=== PATIENT | male | born 1975 | race Caucasian/White ===

== ENCOUNTER 2016-08-19 16:21 | Emergency (ER) | payer BC ==
--- NOTE | 2016-08-19 16:51 | ED Physician Documentation ---
Upper Respiratory Symptoms - HISTORIAN Historian: patient - HPI Stated Complaint: Cough/Congestion Chief Complaint: Cough/ Upper Respiratory Onset: days ago (3-4 days) Associated Symptoms: fever, chills, runny nose, sore throat, productive cough Further Comments: yes (41 year old male patient presents with complaints of body aches, cough, congestion, fever and chills and chest discomfort due to coughing. Patient states his symptoms started 3-4 days ago.) - ROS CONST/EYES: denies: weakness, eye redness, eye itching CVS/RESP: none LYMPH: denies: leg swelling, rash - PAST HX Lung Disease: none PE Risk Factors: none Surgeries/Procedures: other (tonsilectomy) Allergies/Adverse Reactions: Allergies Allergy/AdvReac Type Severity Reaction Status Date / Time cephalexin Allergy Intermediate Hives Unverified 09/11/12 11:30 acetaminophen [From Percocet] Allergy Verified 08/19/16 16:51 cephalexin monohydrate Allergy Verified 05/24/14 11:24 [From Keflex] oxycodone HCl [From Percocet] Allergy Verified 08/19/16 16:51 Home Medications: Ambulatory Orders Medication Instructions Recorded Venlafaxine HCl [Effexor Xr] 75 mg PO DAILY 08/19/16 - SOCIAL HX Smoking History: cigarettes - FAMILY HX Family History: denies: none - VITAL SIGNS Vital Signs: Vital Signs Temp Pulse Resp BP Pulse Ox 98.5 F 88 18 150/99 97 08/19/16 16:25 08/19/16 16:55 08/19/16 16:55 08/19/16 16:55 08/19/16 16:55 - REVIEWED ASSESSMENTS Nursing Assessment Reviewed: Yes Vitals Reviewed: Yes Progress - Progress Progress: Patient requested antibiotic for cough, explained antibiotic would not help Influenza. Reviewed discharge instructions, questions answered. Patient requested inhaler for "chest" explained he was not wheezing, inhaler would not benefit him at this time. ED Results Lab/Radiology - Orders Orders: ED Orders Category Date Time Status INFLUENZA A&B Stat Lab 08/19/16 16:25 Ordered Upper Respiratory Symptoms - EXAM General Appearance: mild distress EENT: eyes nml inspection, nml ENT inspection, lids & conjunct. nml, PERRL, ear nml, nose nml, pharynx nml, airway nml Respiratory: no resp. 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 Your bodys immune system will be able to fight the virus and this can be helped in a number of ways. Rest Have plenty of sleep and rest. Stay away from others while you have a cold or flu. Take simple painkillers Such as Tylenol or ibuprofen, to help relieve headaches, muscles aches and pains and fever. Keep hydrated (drink plenty of fluids) This will help keep your throat moist and replace fluid lost due to a fever and sweating. Plenty of water is best. Avoid caffeine and alcohol as they will make you more dehydrated. Eat soft food If you have a sore throat soft foods are easier to swallow. Foods such as chicken soup may help a sore throat and reduce mucous (sticky fluid). Take vitamins Vitamin C and Echinacea have proven benefits in helping to beat a cold. Talk to your doctor or health ocular care technician before giving your child vitamins. Use nasal drops or spray This may help to clear a blocked nose in the short term (two to three days). Saline mist, Nairs, or Little Noses are available over the counter Use warm gargles and cough lozenges These can help soothe a sore throat. Over the counter cholorseptine spray works well for sore throats. Do not give aspirin to children What to expect Your cold is likely to last a few days but may last up to ten days. A cough may linger for three weeks. The flu can last ten to 14 days. Home Medications: Ambulatory Orders Venlafaxine HCl [Effexor Xr] 75 mg PO DAILY 08/19/16 Condition: Stable Disposition: HOME, SELF-CARE Decision to Admit: NO Decision Time: 16:50
[2016-08-19 16:57] VITALS: BP 150/99
== END 2016-08-19 16:55 | disposition home or self-care (01) ==
LOC: ED 16:21
DX: J11.1 Influenza due to unidentified influenza virus with other respiratory manifestations (principal)
CPT/HCPCS: 87400; 99282; 99283

== ENCOUNTER 2016-08-25 17:13 | Emergency (ER) | payer BC ==
--- NOTE | 2016-08-25 17:31 | ED Physician Documentation ---
General Adult - HISTORIAN Historian: patient - HPI Stated Complaint: cough Chief Complaint: General Adult Onset: days ago Timing: still present Severity: moderate Further Comments: yes (Pt is a 41 yo male who was seen here 08/19/16 with a cough that he had had at that time for 1 week. Pt was found to be pos for influenza A. Pt was also rx'd Robitussin AC, but says that he has continued to have cough which keeps him up at night. Pt has not had chest pain or sob, apart from when he coughs. Pt has a hx of asthma, and works in a cold [employer]- [employer] type environment and the cold exacerbates his cough.) - ROS CONST: no problems EYES/ENT: nasal congestion CVS/RESP: cough GI/: none MS/SKIN/LYMPH: none - PAST HX Past History: asthma, other (depression) Surgeries/Procedures: other (tonsillectomy) Allergies/Adverse Reactions: Allergies Allergy/AdvReac Type Severity Reaction Status Date / Time cephalexin Allergy Intermediate Hives Unverified 09/11/12 11:30 acetaminophen [From Percocet] Allergy Verified 08/19/16 16:51 cephalexin monohydrate Allergy Verified 05/24/14 11:24 [From Keflex] oxycodone HCl [From Percocet] Allergy Verified 08/19/16 16:51 Home Medications: Ambulatory Orders Medication Instructions Recorded Venlafaxine HCl [Effexor Xr] 75 mg PO DAILY 08/19/16 - SOCIAL HX Smoking History: cigarettes - FAMILY HX Family History: No - VITAL SIGNS Vital Signs: Vital Signs Temp Pulse Resp BP Pulse Ox 150/99 08/19/16 16:55 - REVIEWED ASSESSMENTS Nursing Assessment Reviewed: Yes Vitals Reviewed: Yes Progress - Progress Progress: Rx Z-steve as directed. Rx Tessalon 200 mg po tid prn. # 30. - EKG/XRAY/CT XRAY: chest (Discoid atelectasis in the left base) General Adult Physical Exam - PHYSICAL EXAM GENERAL APPEARANCE: mild distress EENT: eye inspection normal, ENT inspection normal, pharynx normal NECK: normal inspection, supple RESPIRATORY: no resp distress, chest non-tender, breath sounds normal CVS: reg rate & rhythm, heart sounds normal BACK: normal inspection SKIN: warm/dry, normal color EXTREMITIES: non-tender, normal range of motion, no evidence of injury NEURO: oriented X3, motor nml, sensation nml Discharge Clincal Impression: Persistent cough, Influenza A Referrals: Bill De Guzman MD [Primary Care Provider] - Home Medications: Ambulatory Orders Venlafaxine HCl [Effexor Xr] 75 mg PO DAILY 08/19/16 Condition: Good Disposition: HOME, SELF-CARE Decision to Admit: NO Decision Time: 18:42
--- NOTE | 2016-08-25 18:39 | Diagnostic Imaging Report ---
[id number] [facility].[address] [address] Report Submission Date: Aug 25, 2016 6:30:16 PM LEAD CUSTOMER SERVICE REPRESENTATIVE Patient Study Name: NORMAN ALVAREZ Date: Aug 25, 2016 6:00:33 PM LEAD CUSTOMER SERVICE REPRESENTATIVE Modality Type: CR Gender: M Description: CHEST : 71 Institution: Physician: MAYTE AUSTIN Chest -two views CLINICAL HISTORY: Persistent cough for 1 week. FINDINGS: Examination of the chest in PA and lateral views with comparison to examination of 10/07/2012 demonstrates discoid changes in the left base. The right lung is clear. The cardiovascular and mediastinal silhouettes are within normal limits. IMPRESSION: Discoid atelectasis in the left base. Electronically signed on Aug 25, 2016 6:30:16 PM LEAD CUSTOMER SERVICE REPRESENTATIVE by: Tej KANG
[2016-08-25 18:57] VITALS: BP 130/93
== END 2016-08-25 18:46 | disposition home or self-care (01) ==
LOC: ED 17:13
DX: J11.1 Influenza due to unidentified influenza virus with other respiratory manifestations (principal); R05 Cough
CPT/HCPCS: 71020; 99282

== ENCOUNTER 2017-02-16 16:38 | Outpatient (CLI) | payer BC ==
--- NOTE | 2017-02-17 | Diagnostic Imaging Report ---
ROSALINA TAMAYO~ [facility] [id number] [facility].[address] [address] ~ ~ ~ ~ Report Submission Date: Feb 16, 2017 5:00:14 PM CDT Patient ~ Study Name: NORMAN ALVAREZ ~ Date: Feb 16, 2017 4:46:01 PM CDT ~ Modality Type: CR Gender: M ~ Description: CHEST : 71 ~ Institution: [facility] Physician: ROSALINA TAMAYO ~ ~ ~ ~ Examination: PA and lateral chest. History: Evaluate lung kinsey. Comparison exam: 25 August 2016 Findings: PA lateral chest demonstrate a normal cardiac and mediastinal silhouette. No focal infiltrate.~ No effusion.~ No blunting of the costophrenic margins.~ Osseous structures are appropriate for age. Impression: Stable examination. ~No acute process. ~ Electronically signed on Feb 16, 2017 5:00:14 PM CDT by: Wan KANG
== END 2017-02-16 16:40 ==
LOC: RAD 16:38
PROVIDERS: ATTEND Physician Assistant
DX: R05 Cough (principal); R06.2 Wheezing
CPT/HCPCS: 71020

== ENCOUNTER 2017-08-28 11:10 | Outpatient (CLI) | payer OTHER ==
--- NOTE | 2017-08-28 13:44 | Diagnostic Imaging Report ---
SUN PRINCE [facility] [id number] [facility] [address] [address] Report Submission Date: Aug 28, 2017 11:40:05 AM GREENSKEEPER SUPERVISOR Patient Study Name: NORMAN ALVAREZ Date: Aug 28, 2017 11:14:50 AM GREENSKEEPER SUPERVISOR Modality Type: CR Gender: M Description: CHEST : 71 Institution: [facility] Physician: SUN PRINCE Examination: PA and lateral chest. History: Evaluate lung kinsey. Comparison exam: 16 February 2017 Findings: PA lateral chest demonstrate a normal cardiac and mediastinal silhouette. No focal infiltrate. No blunting of the costophrenic margins. Osseous structures are appropriate for age. Impression: Stable examination. No acute appearing pulmonary process. Electronically signed on Aug 28, 2017 11:40:05 AM GREENSKEEPER SUPERVISOR by: Wan KANG
== END 2017-08-28 11:12 ==
LOC: RAD 11:10
PROVIDERS: ATTEND Physician Assistant
DX: R05 Cough (principal)
CPT/HCPCS: 71020

== ENCOUNTER 2017-09-23 13:42 | Emergency (ER) | payer OTHER ==
[2017-09-23] MEDS ORDERED: 0.9 % SODIUM CHLORIDE 1,000 ML IV ONE ×4 (13:51→15:51)
[2017-09-23 14:12] LABS: BASOPHILS % 0.8 (0.0-1.5); EOSINOPHILS % 1.3 % (0.0-6.8); MEAN CORPUSCULAR HEMOGLOBIN 31.3 pg (28.0-34.0); MEAN CORPUSCULAR VOLUME 91.1 fl (80.0-100.0); MONOCYTES % 7.1 % (0.0-11.0); NEUTROPHILS # 4.7 # k/uL (1.4-7.7)
[2017-09-23 14:21] LABS: eGFR (African) > 60; eGFR (Non-African) > 60
--- NOTE | 2017-09-23 14:37 | ED Physician Documentation ---
General Adult - HISTORIAN Historian: patient, child - HPI Stated Complaint: high blood sugar Chief Complaint: General Adult Additional Information: fsbs at home recently high. pt reports onset approx 3 mo ago blurred vision poly uria poly dypsia polyphagia. father dx dm age 60 now 75 and doing well. 1 sister w/dm. pt is alert no obvious sig ac distress- ua ketone=neg. ABG= ph7.44 so suspect hyperosmolar hyperglycemic state. Onset: other (approxc 3 months progressive) Severity: moderate - ROS CONST: denies: weight loss EYES/ENT: problems with vision CVS/RESP: none GI/: denies: abdominal pain - PAST HX Past History: other (bipolar) Surgeries/Procedures: other (T and A ) Allergies/Adverse Reactions: Allergies Allergy/AdvReac Type Severity Reaction Status Date / Time cephalexin Allergy Intermediate Hives Verified 09/23/17 14:51 acetaminophen [From Percocet] Allergy Verified 09/23/17 14:51 cephalexin monohydrate Allergy Verified 09/23/17 14:51 [From Keflex] oxycodone HCl [From Percocet] Allergy Verified 09/23/17 14:51 - SOCIAL HX Smoking History: cigarettes Alcohol Use: none Drug Use: none - FAMILY HX Family History: Yes (father and sister w/ diabetes) - VITAL SIGNS Vital Signs: Vital Signs Temp Pulse Resp BP Pulse Ox 98.1 F 88 20 137/83 95 09/23/17 13:42 09/23/17 13:42 09/23/17 13:42 09/23/17 13:42 09/23/17 13:42 - REVIEWED ASSESSMENTS Nursing Assessment Reviewed: Yes Vitals Reviewed: Yes ED Results Lab/Radiology - Orders Orders: ED Orders Category Date Time Status Place IV Lock 1T Care 09/23/17 13:55 Ordered ARTERIAL BLOOD GAS Stat Lab 09/23/17 Uncollected CBC/PLATELET/DIFF Routine Lab 09/23/17 Ordered CMP Routine Lab 09/23/17 Ordered GLYCOHEMOGLOBIN A1C with eAG Routine Lab 09/23/17 Ordered URINALYSIS Routine Lab 09/23/17 Ordered 0.9 % Sodium Chloride [Normal Saline] 1,000 ml Med 09/23/17 13:51 Discontinued IV .STK-MED Chem Sticks Med 09/23/17 14:00 Ordered 1 each CHEMQ NORMAL SALINE @ 1000 MLS/HR ( 1000ml BOLUS) Med 09/23/17 13:55 Ordered 0.9 % Sodium Chloride [Normal Saline] 1,000 ml IV Q1H EKG WITH COMPARISON Stat Ther 09/23/17 Ordered General Adult Physical Exam - PHYSICAL EXAM GENERAL APPEARANCE: mild distress EENT: eye inspection normal NECK: normal inspection. No: carotid bruit RESPIRATORY: no resp distress, breath sounds normal CVS: reg rate & rhythm, heart sounds normal ABDOMEN: soft, non-tender SKIN: warm/dry, normal color. No: cyanosis, diaphoresis, jaundice, mottled EXTREMITIES: non-tender, normal range of motion NEURO: oriented X3, motor nml, sensation nml, mood/affect nml Discharge Clincal Impression: non ketotic diabetes Referrals: Bill De Guzman MD [Primary Care Provider] - 2 Days Comments: home-become expert in daibetic nutrition. metformin see DR DE GUZMAN 1-2 DAYS Condition: Good Disposition: 01 HOME, SELF-CARE Decision to Admit: NO Decision Time: 18:01
[2017-09-23] MEDS ORDERED: 0.9 % SODIUM CHLORIDE 250 ML IV.SOLN IV ONE (15:15)
[2017-09-23 17:16] LABS: eGFR (African) > 60; eGFR (Non-African) > 60
[2017-09-23 18:15] VITALS: BP 137/98
[2017-09-24 05:25] LABS: APPEARANCE,URINE CLEAR (CLEAR); COLOR,URINE YELLOW (YELLOW)
[2017-09-24 05:26] LABS: OCCULT BLOOD,URINE NEGATIVE (NEGATIVE); UROBILINOGEN URINE 0.2 Eu (0.2-1.0)
== END 2017-09-23 18:16 | disposition home or self-care (01) ==
LOC: ED 13:42
DX: E13.9 Other specified diabetes mellitus without complications (principal); F17.210 Nicotine dependence, cigarettes, uncomplicated
CPT/HCPCS: 80048; 80053; 81002; 83036; 85025; 93005; J7030; 96365; 96366; 99283; S1016

== ENCOUNTER 2017-12-28 09:42 | Outpatient (CLI) | payer OTHER ==
[2017-12-28 10:20] LABS: eGFR (African) > 60; eGFR (Non-African) > 60
== END 2017-12-28 09:50 ==
LOC: LAB 09:42
PROVIDERS: ATTEND Family Medicine
DX: E11.9 Type 2 diabetes mellitus without complications (principal)
CPT/HCPCS: 36415; 80053; 80061; 83036

== ENCOUNTER 2018-09-16 07:51 | Outpatient (CLI) | payer OTHER ==
[2018-09-16 08:43] LABS: eGFR (Non-African) > 60
== END 2018-09-16 07:53 ==
LOC: LAB 07:51
PROVIDERS: ATTEND Nurse Practitioner Family
DX: I10 Essential (primary) hypertension (principal); E11.9 Type 2 diabetes mellitus without complications
CPT/HCPCS: 36415; 80053; 80061; 83036

== ENCOUNTER 2018-09-28 13:17 | Emergency (ER) | payer OTHER ==
--- NOTE | 2018-09-28 13:46 | ED Physician Documentation ---
Eye Problem - HISTORIAN Historian: patient - HPI Stated Complaint: left eye with stye Chief Complaint: Eye Problems Onset: days ago (7) Associated symptoms: eyelid swelling Location: left eye Severity: mild Apparent Injury: no Where: home Further Comments: yes (He states he started with a stye on left inner eye lid . He did see his PCP and was given med. He notes the area has grown and is now on the outside. He denies any pain with eye. He has been using ointment and he has not been doing warm compresses due to work. He has no loss of vision. He has no fever.) - ROS CONST: no problems - PAST HX Past History: none Immunizations: UTD Allergies/Adverse Reactions: Allergies Allergy/AdvReac Type Severity Reaction Status Date / Time cephalexin Allergy Intermediate Hives Verified 09/23/17 14:51 acetaminophen [From Percocet] Allergy Verified 09/23/17 14:51 cephalexin monohydrate Allergy Verified 09/23/17 14:51 [From Keflex] oxycodone HCl [From Percocet] Allergy Verified 09/23/17 14:51 - SOCIAL HX Smoking History: non-smoker Alcohol Use: none Drug Use: none - FAMILY HX Family History: none - VITAL SIGNS Vital Signs: Vital Signs Temp Pulse Resp BP Pulse Ox 137/98 09/23/17 18:13 - REVIEWED ASSESSMENTS Nursing Assessment Reviewed: Yes Vitals Reviewed: Yes Progress - Progress Progress: 1400: will call pharmacy about possible eye drop change DG Eye Problem Physical Exam - Physical Exam General Appearance: no acute distress, alert Visual Acuity: see nursing assessment Eyelids: stye (L) Conjunctiva and Sclera: nml inspection Corneas: nml inspection Pupils: equal Respiratory: no resp distress, chest non-tender, breath sounds normal CVS: reg rate & rhythm Abdomen: non-tender, nml bowel sounds Neuro/Psych: oriented x3 Discharge Clincal Impression: Hordeolum externum (stye) Qualifiers: Laterality: left Eyelid: upper Qualified Code(s): H00.014 - Hordeolum externum left upper eyelid Referrals: Bill De Guzman MD [Primary Care Provider] - 2 Days Comments: 1. Use gentamycin eye drops as prescribed 2. Warm compress 3. DO NOT PHILOMENA EYE LID 4. Notify eye dr Sunday if no improvement 5. Return to ER for any concerns Condition: Stable Disposition: 01 HOME, SELF-CARE Decision to Admit: NO Date of Decison to Admit: 09/28/18 Decision Time: 14:09
[2018-09-28 13:49] VITALS: BP 110/76
== END 2018-09-28 14:10 | disposition home or self-care (01) ==
LOC: ED 13:17
DX: H00.014 Hordeolum externum left upper eyelid (principal)
CPT/HCPCS: 99281; 99282

== ENCOUNTER 2019-03-20 11:28 | Outpatient (CLI) | payer OTHER ==
[2019-03-20 12:25] LABS: eGFR (Non-African) > 60
[2019-03-21 10:55] LABS: A1C 6.2 % (<5.7)
== END 2019-03-20 11:30 ==
LOC: LAB 11:28
PROVIDERS: ATTEND Family Medicine
DX: I10 Essential (primary) hypertension (principal); R73.9 Hyperglycemia, unspecified
CPT/HCPCS: 36415; 80053; 83036